=== PATIENT | female | born 1975 | race African-American/Black ===

== ENCOUNTER 2021-04-07 15:55 | Emergency (ER) | payer MEDICAID ==
[~2021-04-07] VITALS: Ht 157.5 cm; Wt 52.0 kg
[2021-04-07 17:20] LABS: HEMOGLOBIN. 8.3 g/dL (12.0-16.0); MEAN CORPUSCULAR HEMOGLOBIN 19.1 pg (28.0-32.0); MEAN CORPUSCULAR VOLUME 64.9 fL (81.0-99.0); MEAN PLATELET VOLUME 8.5 fl (7.4-10.4); PLATELET 318 x1000/uL (130-400); RED BLOOD CELL COUNT 4.32 mill/uL (4.2-5.4); RED CELL DISTRIBUTION WIDTH 25.3 % (11.6-14.6)
[2021-04-07 17:27] LABS: CHLORIDE 109 mEq/L (98-107)
[2021-04-07 17:31] LABS: ETHANOL BLOOD < 10 mg/dL
[2021-04-07 17:33] LABS: HCG SCREEN NEGATIVE
[2021-04-07 17:47] LABS: PLATELET ESTIMATE NORMAL
[2021-04-07 17:49] LABS: *AMPHETAMINES SCREEN URINE NEGATIVE (NEGATIVE); *BARBITURATES SCREEN URINE NEGATIVE (NEGATIVE); *BENZODIAZEPINES SCREEN URINE NEGATIVE (NEGATIVE); *COCAINE SCREEN URINE NEGATIVE (NEGATIVE); METHADONE URINE SCREEN NEGATIVE (NEGATIVE)
[2021-04-07 17:50] LABS: OPIATES URINE SCREEN NEGATIVE (NEGATIVE)
[2021-04-07 17:51] LABS: PHENCYCLIDINE URINE SCREEN NEGATIVE (NEGATIVE)
[2021-04-07 18:10] LABS: CANNABINOID URINE SCREEN PRESUMTIVE POSITIVE (NEGATIVE)
[2021-04-07] MEDS ORDERED: LORAZEPAM 2MG/ML CPJ IM ONE (20:15)
[2021-04-07] MEDS ORDERED: HALOPERIDOL LACTATE 5MG/ML VIAL IM ONE (20:15)
[2021-04-07] MEDS ORDERED: SODIUM CHLORIDE 0.9% 1,000 ML IV ONE (22:00)
[2021-04-07] MEDS ORDERED: LORAZEPAM 1MG TABLET PO ONE (23:45)
[2021-04-08] MEDS ORDERED: DIPHENHYDRAMINE 50MG CAPSULE PO ONE
[2021-04-08] MEDS ORDERED: LORAZEPAM 1MG TABLET PO ONE
[2021-04-09 11:53] VITALS: BP 108/61
== END 2021-04-09 11:54 | disposition home or self-care (01) ==
LOC: ER 15:55
DX: T39.312A Poisoning by propionic acid derivatives, intentional self-harm, initial encounter (principal); F33.2 Major depressive disorder, recurrent severe without psychotic features; R03.0 Elevated blood-pressure reading, without diagnosis of hypertension; Y92.018 Other place in single-family (private) house as the place of occurrence of the external cause
CPT/HCPCS: 36415; 80048; 80076; 80305; 80307; 80320; 80329; 84703; 85025; 93005; 99285; J7030; G0480